=== PATIENT | male | born 1955 | race Two or more races ===

== ENCOUNTER → 2021-12-29 | Emergency (ER) | payer OTHER ==
[~2021-12-29] MED LIST: LORazepam 2MG/ML-1ML VIAL ONE
== END | disposition left against medical advice (07) ==
LOC: ER 19:47
DX: S01.81XA Laceration without foreign body of other part of head, initial encounter (principal); Z53.21 Procedure and treatment not carried out due to patient leaving prior to being seen by health care provider; W19.XXXA Unspecified fall, initial encounter; Y93.89 Activity, other specified; Y92.89 Other specified places as the place of occurrence of the external cause; Y99.8 Other external cause status

== ENCOUNTER 2024-11-15 20:29 | Emergency (ER) | payer OTHER ==
[~2024-11-15] VITALS: Ht 177.8 cm; Wt 95.0 kg
[2024-11-15] MEDS: SODIUM CHLORIDE 0.9% 500 ML IV ONE (20:45)
--- NOTE | 2024-11-15 20:54 | ED.PDOC ---
History of Present Illness HPI Comments 69-year-old male who came to ER via EMS for weakness. Patient has history of hypertension and diabetes. Has been having flu-like symptoms for the past few days, has been having generalized weakness, right right-sided weakness, slurring of speech and dizziness. Noted blurring of vision, with spots being seen over his left eye. Patient reports episode of 45 minute left eye vision loss you days ago while watching TV. Since then he has had intermittent blurred vision in the left eye and seeing spots in the vision. Patient seen at urgent Care earlier, noted that his blood pressure was low at 66/46 mm Hg. Patient was given IV fluids and it improved to 102/71 mm Hg. 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 Cardiac: No chest pain. No palpitations. Lungs: No shortness of breath, no cough. GI: No nausea, no vomiting, no diarrhea, no constipation, no abdominal pain : No dysuria, frequency, or urgency. No hematuria. Musculoskeletal: No joint pain , no joint swelling, no extremity edema. Skin: No rash, no itching. Neuro: No headache, (+) dizziness, (+) weakness, (+)slurred speech, (+) blurred vision Vital Signs Vital Signs Date Time Temp Pulse Resp B/P (MAP) Pulse Ox O2 Delivery O2 Flow Rate FiO2 11/16/24 12:00 73 18 142/64 (90) 95 11/16/24 08:15 Room Air* 0 21 11/16/24 08:00 98.4 98.4 Physical Exam General: Awake, alert and oriented. No acute distress. Skin: Skin in warm, dry and intact. Appropriate color for ethnicity. Nailbeds pink with no cyanosis. HEENT: The head is normocephalic and atraumatic. Conjunctivae are clear without exudates or hemorrhage. Sclera is non-icteric. EOM are intact. No signs of nystagmus. Eyelids are normal in appearance without swelling or lesions. Oral mucosa is pink and moist Neck: The neck is supple with normal range of motion. No JVD. Cardiac: Heart rate and rhythm are normal. No murmurs, gallops, or rubs are auscultated. Respiratory: No signs of respiratory distress. Lung sounds are clear in all lobes bilaterally without rales, rhonchi, or wheezes. Abdominal: Abdomen is soft, non-tender without distention. Bowel sounds are present and normoactive in all four quadrants. Extremities: Upper and lower extremities are atraumatic in appearance without deformity or edema. Neurological: The patient is awake, alert and oriented to person, place, and time with normal speech. Speech is clear. There is no facial asymmetry. No upper or lower extremity drift. Psychiatric: Appropriate mood and affect. Good judgement and insight. No visual or auditory hallucinations. Past Medical History PAST MEDICAL HISTORY: DM, High Lipids, HTN Surgical History: Denies all surgeries Family History Family History: Reviewed,noncontributory to illness Social History Smoker: Cigarettes Alcohol: Occasionally Drugs: Denies Drug Use Lives In: Home Was a procedure done? Was a procedure done?: No EKG EKG : Pulse Rate (adult): 93 Cardiac Rhythm: NSR Comments Nonspecific ST changes. No STEMI Differential Dx Considerations may include: Anemia, electrolyte imbalance, dehydration, hypotension, syncope, CVA, other X-Ray, Labs, Meds, VS Vital Signs Date Time Temp Pulse Resp B/P (MAP) Pulse Ox O2 Delivery O2 Flow Rate FiO2 11/16/24 12:00 73 18 142/64 (90) 95 11/16/24 10:00 68 19 132/75 (94) 95 11/16/24 09:25 70 11/16/24 08:15 74 15 95 Room Air* 0 21 11/16/24 08:00 98.4 72 22 131/69 (89) 95 98.4 11/16/24 06:20 80 18 118/62 (80) 94 11/16/24 05:38 18 97 Room Air* 0 21 11/16/24 05:00 82 16 148/78 (101) 92 11/16/24 04:10 86 16 117/60 (79) 92 11/16/24 03:00 94 22 143/75 (97) 90 11/16/24 02:34 97 22 157/84 (108) 90 11/16/24 01:00 86 19 138/65 (89) 92 11/16/24 00:00 84 16 115/57 (76) 92 11/15/24 23:22 86 25 132/60 (84) 92 11/15/24 22:00 84 25 114/60 (78) 95 11/15/24 21:14 98.0 91 15 106/56 (73) 94 98.0 11/15/24 21:14 91 15 94 Room Air* 0 21 11/15/24 20:59 89 13 106/56 (73) 94 11/15/24 20:54 93 11/15/24 20:37 93 11/15/24 20:29 97.4 95 16 102/56 (71) 94 97.4 Lab Test 11/16/24 11:41 11/16/24 08:23 11/16/24 03:00 11/16/24 01:40 Range/Units POC Glucose 142 H 101 70-106 mg/dl White Blood Count 11.2 H 4.4-10.8 10^3/uL Red Blood Count 4.18 L 4.5-5.90 10^6/uL Hemoglobin 13.4 L 13.5-17.5 g/dL Hematocrit 39.9 L 41.0-53.0 % Mean Corpuscular Volume 95.4 80.0-100.0 fL Mean Corpuscular Hemoglobin 32.0 28.0-32.0 pg Mean Corpuscular Hemoglobin Concent 33.5 32.0-36.0 g/dL Red Cell Distribution Width 14.0 11.8-14.3 % Platelet Count 157 140-450 10^3/uL Mean Platelet Volume 9.8 6.9-10.8 fL Neutrophils (%) (Auto) 67.9 37.0-80.0 % Lymphocytes (%) (Auto) 21.9 10.0-50.0 % Monocytes (%) (Auto) 8.5 0.0-12.0 % Eosinophils (%) (Auto) 1.2 0.0-7.0 % Basophils (%) (Auto) 0.5 0.0-2.0 % Neutrophils # (Auto) 7.6 1.6-8.6 10 ^3/uL Lymphocytes # (Auto) 2.4 0.4-5.4 10 ^3/uL Monocytes # (Auto) 0.9 0-1.3 10 ^3/uL Eosinophils # (Auto) 0.1 0-0.8 10 ^3/uL Basophils # (Auto) 0.1 0-0.2 10 ^3/uL Nucleated Red Blood Cells 0.0 % Sodium Level 138 136-145 mmol/L Potassium Level 4.2 3.5-5.1 mmol/L Chloride Level 107 98-107 mmol/L Carbon Dioxide Level 23 20-31 mmol/L Anion Gap 8 5-15 Blood Urea Nitrogen 27 H 9-23 mg/dL Creatinine 1.18 0.700-1.30 mg/dL Glomerular Filtration Rate Calc 66 >90 mL/min BUN/Creatinine Ratio 22.9 H 10.0-20.0 Serum Glucose 178 H 74-106 mg/dL Calcium Level 8.6 L 8.7-10.4 mg/dL B-Type Natriuretic Peptide 38.44 0-100 pg/mL Urine Color Light-yellow Yellow Urine Clarity Clear Clear Urine pH 5.5 5.0-9.0 Urine Specific [place] 1.036 H 1.001-1.035 Urine Protein Negative Negative Urine Ketones Negative Negative Urine Blood Negative Negative /uL Urine Nitrite Negative Negative Urine Bilirubin Negative Negative Urine Urobilinogen Normal Negative mg/dL Urine Leukocyte Esterase Negative Negative /uL Urine RBC 2 0 - 3 /hpf Urine Microscopic WBC 1 0-3 /HPF Urine Squamous Epithelial Cells Few <5 /hpf Urine Bacteria None seen None Seen /hpf Urine Hyaline Casts Mod 0 - 2 /lpf Urine Mucus Few None Seen Urine Glucose 3+ H Normal mg/dL Test 11/15/24 20:50 Range/Units White Blood Count 12.9 H 4.4-10.8 10^3/uL Red Blood Count 4.43 L 4.5-5.90 10^6/uL Hemoglobin 14.2 13.5-17.5 g/dL Hematocrit 42.0 41.0-53.0 % Mean Corpuscular Volume 95.0 80.0-100.0 fL Mean Corpuscular Hemoglobin 32.1 H 28.0-32.0 pg Mean Corpuscular Hemoglobin Concent 33.8 32.0-36.0 g/dL Red Cell Distribution Width 13.9 11.8-14.3 % Platelet Count 182 140-450 10^3/uL Mean Platelet Volume 9.5 6.9-10.8 fL Neutrophils (%) (Auto) 79.5 37.0-80.0 % Lymphocytes (%) (Auto) 11.6 10.0-50.0 % Monocytes (%) (Auto) 7.7 0.0-12.0 % Eosinophils (%) (Auto) 0.5 0.0-7.0 % Basophils (%) (Auto) 0.7 0.0-2.0 % Neutrophils # (Auto) 10.3 H 1.6-8.6 10 ^3/uL Lymphocytes # (Auto) 1.5 0.4-5.4 10 ^3/uL Monocytes # (Auto) 1.0 0-1.3 10 ^3/uL Eosinophils # (Auto) 0.1 0-0.8 10 ^3/uL Basophils # (Auto) 0.1 0-0.2 10 ^3/uL Nucleated Red Blood Cells 0.0 % Sodium Level 140 136-145 mmol/L Potassium Level 5.2 H 3.5-5.1 mmol/L Chloride Level 109 H 98-107 mmol/L Carbon Dioxide Level 23 20-31 mmol/L Anion Gap 8 5-15 Blood Urea Nitrogen 32 H 9-23 mg/dL Creatinine 1.53 H 0.700-1.30 mg/dL Glomerular Filtration Rate Calc 48 >90 mL/min BUN/Creatinine Ratio 20.9 H 10.0-20.0 Serum Glucose 139 H 74-106 mg/dL Lactic Acid Level 1.3 0.4-2.0 mmol/L Calcium Level 9.5 8.7-10.4 mg/dL Troponin I High Sensitivity 23 </=54 ng/L B-Type Natriuretic Peptide 35.62 0-100 pg/mL Thyroid Stimulating Hormone (TSH) 1.98 0.55-4.78 uIU/mL Plasma/Serum Blood Alcohol < 3.0 <10 mg/dL Microbiology Date/Time Source Procedure Growth Status 11/15/24 20:50 Blood Blood Culture - Preliminary NO GROWTH AFTER 24 HOURS OF INCUBATION. Resulted 11/15/24 20:40 Blood Blood Culture - Preliminary NO GROWTH AFTER 24 HOURS OF INCUBATION. Resulted Current Medications Medications (Trade) Dose Ordered Sig/Kerry Route Start Time Stop Time Status Last Admin Sodium Chloride 1,000 ml @ 1,000 mls/hr Q1H ONCE IV 11/15/24 22:45 11/15/24 23:44 DC 11/15/24 23:00 Albuterol (Ventolin Medneb) 2.5 mg ONCE ONCE NEB 11/16/24 05:00 11/16/24 05:06 DC 11/16/24 05:36 Ipratropium [place] (Atrovent Medneb) 0.5 mg ONCE ONCE NEB 11/16/24 05:00 11/16/24 05:06 DC 11/16/24 05:36 Ceftriaxone Sodium 50 ml @ 100 mls/hr ONCE ONCE IV 11/16/24 05:00 11/16/24 05:29 DC 11/16/24 05:11 Aspirin (Ecotrin Enteric Coated Tablet) 81 mg DAILY PO 11/16/24 10:00 11/16/24 11:49 Diagnostic Test (Pha) (Accu-Chek Comfort Curve T) 1 strip ACHS 11/16/24 07:00 11/16/24 11:42 Time of 1ST Reevaluation: 20:43 Reevaluation 1ST: Unchanged Patient Education/Counseling: Other Family Education/Counseling: No Family Present Departure 1 Departure Time of Disposition: 22:00 Impression: Primary Impression: Hypotension Additional Impressions: Acute kidney injury Generalized weakness Disposition: ADMITTED INPATIENT Condition: Stable Comments 69-year-old male with generalized weakness, low blood pressures, intermittent episodes of left eye vision loss, intermittent episodes of right upper extremity weakness, MONIKA. @0775: Discussed with request for admission. He recommends addition 1L NS bolus, repeat BMP. Add on CT angio head and neck and he will see patient in ED. @0530: Discussed with Dr. Barnes who evaluated patient in the ED. Recommendation is neurology consultation in the morning, possible transfer to facility with MRI and ophthalmology capabilities. @600: Discussed with Dr. Barnes who spoke with neurology. Recommendation is stat MRI for evaluation of possible TIA/amaurosis fugax. (Signed out to Dr. Dang) Critical Care Note Critical Care Time?: Yes (35 min-critical care time only) Critical care comment: Hypotension Stability Stability form required: No Heart Score Heart Score: Heart Score Response (Comments) Value History Moderate Suspicious 1 EKG Repolarization Disturb 1 Age >65 2 Risk Factors >3 or Hx ASHD 2 Troponin Normal limit 0 Total 6 I personally scribed for URVASHI YOUNG MD ([email or web address]) on 11/15/24 at 20:54. Electronically submitted by Oscar Tran ([facility]). URVASHI YOUNG MD November 15, 2024 20:54
[2024-11-15 21:11] LABS: Basophils # (auto) 0.1 10 ^3/uL (0-0.2); Basophils % (auto) 0.7 % (0.0-2.0); Eosinophils # (auto) 0.1 10 ^3/uL (0-0.8); Eosinophils % (auto) 0.5 % (0.0-7.0); Hemoglobin 14.2 g/dL (13.5-17.5); Lymphocytes # (auto) 1.5 10 ^3/uL (0.4-5.4); Lymphocytes % (auto) 11.6 % (10.0-50.0); Mean Corpuscular Hemoglobin 32.1 pg (28.0-32.0); Mean Corpuscular Hgb Conc. 33.8 g/dL (32.0-36.0); Monocytes % (auto) 7.7 % (0.0-12.0); Neutrophils # (auto) 10.3 10 ^3/uL (1.6-8.6); Neutrophils % (auto) 79.5 % (37.0-80.0); Platelet Count (auto) 182 10^3/uL (140-450); Red Blood Cells 4.43 10^6/uL (4.5-5.90); Red Cell Distribution Width 13.9 % (11.8-14.3); White Blood Cell 12.9 10^3/uL (4.4-10.8)
[2024-11-15 21:14] VITALS: PULSE 91; RESP 15; O2SAT 94
[2024-11-15 21:24] LABS: Sodium 140 mmol/L (136-145)
[2024-11-15 21:25] LABS: Anion Gap 8 (5-15); Calcium 9.5 mg/dL (8.7-10.4); Carbon Dioxide 23 mmol/L (20-31)
[2024-11-15 21:30] LABS: BUN/Creatinine Ratio 20.9 (10.0-20.0)
--- NOTE | 2024-11-15 21:35 | DVH ---
CHEST RADIOGRAPH Indication: Weakness hypotension Technique: Single frontal view of the chest was obtained COMPARISON: None FINDINGS: Lines and Tubes: None Lungs: Clear Pleura: No effusion. No pneumothorax. Cardiomediastinal contours: Unremarkable IMPRESSION: No acute disease.
[2024-11-15 21:40] LABS: Blood Urea Nitrogen 32 mg/dL (9-23); Chloride 109 mmol/L (98-107); Glucose 139 mg/dL (74-106); Potassium 5.2 mmol/L (3.5-5.1)
--- NOTE | 2024-11-15 21:47 | DVH ---
CT HEAD WITHOUT CONTRAST INDICATION: Intermittent RUSS weakness and left vision loss COMPARISON: None TECHNIQUE: CT of the head without intravenous contrast. RADIATION DOSE: CTDIvol: mGy, DLP: mGy*cm FINDINGS: There is no evidence of intracranial hemorrhage, large infarct, extra-axial collection, mass effect, midline shift, herniation or hydrocephalus. Minimal chronic white matter microvascular schema change . The ventricles, sulci and cisterns are normal. The reed-white differentiation is intact. Visualized paranasal sinuses and mastoid air cells are clear. Soft tissues and osseous structures are unremarka ble. IMPRESSION: No acute intracranial abnormality identified.
[2024-11-15 22:01] LABS: Blood Alcohol < 3.0 mg/dL (<10)
[2024-11-15] MEDS: SODIUM CHLORIDE 0.9% 1,000 ML IV ONE ×2 (22:39→23:00)
[2024-11-15] MEDS: IOHEXOL 350 MG/ML 100ML IJ ONE (23:20)
--- NOTE | 2024-11-16 00:12 | DVH ---
INDICATION: RUE intermittent weakness. COMPARISON: None TECHNIQUE: CTA head without and with intravenous contrast. CTA neck with intravenous contrast. 3D image postprocessing was performed on a dedicated workstation and images were used for interpretation and reporting. Radiation Dose Information: CT Dose: CTDI volume is 91.94 mGy. Dose-length product is 925.35 mGy*cm FINDINGS: CT head: There is no evidence of acute intracranial hemorrhage, extra-axial collection, mass effect, midline s hift, herniation or hydrocephalus. The ventricles, sulci and cisterns are age appropriate. The reed -white differentiation is intact. The visualized paranasal sinuses and mastoid air cells are clear. The surrounding soft tissues and osseous structures are unremarkable. CTA head: There is normal enhancement of the visualized distal internal carotid, anterior and middle cerebral a rteries. Moderate atherosclerotic vascular calcification noted within the bilateral cavernous interna l carotid arteries resulting in less than 20% stenosis bilaterally. There is a normal anterior commun icating artery complex. There are bilateral posterior communicating arteries. The vertebral, basila r, cerebellar and posterior cerebral arteries are within normal limits. The early parenchymal enhanc ement is grossly unremarkable. The visualized intracranial venous structures are grossly unremarkabl e. CTA neck: The visualized thoracic aortic arch and proximal great vessels are unremarkable. Atherosclerotic vasc ular calcifications. The left common, internal and external carotid arteries are within normal limits. The right common, internal and external carotid arteries are within normal limits. Atherosclerotic vascular calcifications within the bilateral carotid bulbs and origin of the right in ternal carotid artery have resulted in less than 20% stenosis. The cervical segments of the right and left vertebral arteries are within normal limits. The limited visualized lung apices are clear. The surrounding soft tissues and osseous structures ar e otherwise unremarkable. IMPRESSION: 1. No evidence of acute intracranial hemorrhage, mass effect or hydrocephalus. 2. No evidence of hemodynamically significant intracranial stenosis, proximal occlusion or aneurysm. Less than 20% bilateral cavernous portion internal carotid artery stenosis secondary to atherosclerot ic vascular calcifications. 3. No evidence of hemodynamically significant cervical stenosis or dissection. Less than 20% bilatera l carotid bulb and origin right internal carotid artery stenosis secondary to atherosclerotic vascula r calcifications. All CT scans at this medical facility are performed using dose modulation techniques as appropriate t o a performed exam including the following: Automated exposure control was utilized; adjustment of th e MA and/or KV according to patient size; and use of iterative reconstruction technique.
[2024-11-16 02:07] LABS: Urine Bacteria None Seen /hpf (None Seen)
[2024-11-16 02:14] LABS: Urine Blood Negative /uL (Negative); Urine Clarity Clear (Clear); Urine Color Light-Yellow (Yellow); Urine Hyaline Cast MOD /lpf (0 - 2); Urine Mucus FEW (None Seen); Urine Protein, UAD Negative (Negative); Urine Specific Gravity 1.036 (1.001-1.035); Urine Squamous Epithelial Cell FEW /hpf (<5); Urine Urobilinogen Normal (Negative); Urine WBC 1 /HPF (0-3); Urine pH 5.5 (5.0-9.0)
[2024-11-16 03:55] LABS: Potassium 4.2 mmol/L (3.5-5.1); Sodium 138 mmol/L (136-145)
[2024-11-16 03:56] LABS: Anion Gap 8 (5-15); Carbon Dioxide 23 mmol/L (20-31)
[2024-11-16 04:01] LABS: BUN/Creatinine Ratio 22.9 (10.0-20.0)
[2024-11-16 04:08] LABS: Blood Urea Nitrogen 27 mg/dL (9-23); Calcium 8.6 mg/dL (8.7-10.4); Chloride 107 mmol/L (98-107); Glucose 178 mg/dL (74-106)
[2024-11-16] MEDS: IPRATROPIUM BROM 0.5 MG/2.5ML INH SOL ONE (04:51)
[2024-11-16] MEDS: ALBUTEROL SULF 2.5 MG/0.5ML(0.5%) NEB SOLN ONE (04:51)
[2024-11-16] MEDS: cefTRIAXone 1GM/50ML D5W 50 ML IV ONE (05:11)
[2024-11-16] MEDS ORDERED: DEXTROSE (50%) 50ML SYRG IV PRN (05:15)
[2024-11-16 05:30] LABS: Basophils # (auto) 0.1 10 ^3/uL (0-0.2); Basophils % (auto) 0.5 % (0.0-2.0); Eosinophils # (auto) 0.1 10 ^3/uL (0-0.8); Eosinophils % (auto) 1.2 % (0.0-7.0); Hematocrit 39.9 % (41.0-53.0); Hemoglobin 13.4 g/dL (13.5-17.5); Lymphocytes # (auto) 2.4 10 ^3/uL (0.4-5.4); Lymphocytes % (auto) 21.9 % (10.0-50.0); Mean Corpuscular Hgb Conc. 33.5 g/dL (32.0-36.0); Mean Corpuscular Volume 95.4 fL (80.0-100.0); Monocytes # (auto) 0.9 10 ^3/uL (0-1.3); Monocytes % (auto) 8.5 % (0.0-12.0); Neutrophils # (auto) 7.6 10 ^3/uL (1.6-8.6); Neutrophils % (auto) 67.9 % (37.0-80.0); Platelet Count (auto) 157 10^3/uL (140-450); Red Blood Cells 4.18 10^6/uL (4.5-5.90); White Blood Cell 11.2 10^3/uL (4.4-10.8)
[2024-11-16] MEDS: ALBUTEROL SULF 2.5 MG/0.5ML(0.5%) NEB SOLN NEB ONE (05:36)
[2024-11-16] MEDS: IPRATROPIUM BROM 0.5 MG/2.5ML INH SOL NEB ONE (05:36)
--- NOTE | 2024-11-16 07:15 | ECG ---
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
[2024-11-16 08:00] VITALS: TEMP 98.4
[2024-11-16 08:15] VITALS: PULSE 74; RESP 15; O2SAT 95
[2024-11-16] MEDS: ACCU-CHEK COMFORT CURVE STRIP VI SCH (08:26)
[2024-11-16] MEDS: InsuLIN REG 1unit/0.01ml Soln (100units/ml) SC SCH (08:26)
[2024-11-16] MEDS: ASPirin-EC 81 mg tab PO SCH (11:49)
[2024-11-16 12:00] VITALS: BP 142/64; PULSE 73; RESP 18; O2SAT 95
[2024-11-16] MEDS ORDERED: ATORVASTATIN 20 MG TAB PO SCH (22:00)
== END 2024-11-16 14:20 | disposition left against medical advice (07) ==
LOC: ER 20:29 → EDBD 20:29 → ER 11-16 14:20
DX: N17.9 Acute kidney failure, unspecified (principal); I95.9 Hypotension, unspecified; I10 Essential (primary) hypertension; E11.9 Type 2 diabetes mellitus without complications; F17.210 Nicotine dependence, cigarettes, uncomplicated; R06.02 Shortness of breath; H54.62 Unqualified visual loss, left eye, normal vision right eye; Z79.82 Long term (current) use of aspirin
CPT/HCPCS: 36415; 70450; 70496; 70498; 71045; 80048; 80320; 81001; 82947; 83605; 83880; 84443; 84484; 85025; 87040; 93005; 94640; 96361; 96365; 96366; 99285; J0696; J7030; J7040; Q9967; 82962